=== PATIENT | female | born 1975 | race Caucasian/White ===

== ENCOUNTER 2018-10-10 12:10 | Emergency (ER) | payer OTHER ==
[~2018-10-10] VITALS: Ht 165.1 cm; Wt 74.8 kg
[~2018-10-10 12:10] MED LIST: Augmentin 875-1 EACH PO; Bactrim Ds Tab1 EACH PO; CEFU500 PO; CEPH500 PO; CODACE30 PO; CYCL10 PO; DOCU100 PO; DULO60 PO; EPIN.3I IM; FERR325 PO; HYDACE10B PO; HYDR1TAB94 PO; IBUP600 PO; MEDR150I IM; NAPR500 PO; Naprosyn500 MG PO; Norco 5-325 Ta1 EACH PO; PRED20 PO; PROM25 PO; Pyridium200 MG PO; QUET100 PO; RXOXYACE PO; SENN187 PO; SULTRIDS PO; TAMS.4ER PO; TOBR.3OPO OP; TOBR.3OPSO OP; TRAM50 PO
== END 2018-10-10 12:50 | disposition home or self-care (01) ==
LOC: ER 12:10
DX: L23.7 Allergic contact dermatitis due to plants, except food (principal); Z88.5 Allergy status to narcotic agent; Z87.891 Personal history of nicotine dependence
CPT/HCPCS: 96372; 99283-25; J3301

== ENCOUNTER 2018-10-29 08:41 | Emergency (ER) | payer OTHER ==
[~2018-10-29] VITALS: Ht 165.1 cm; Wt 72.6 kg
[2018-10-29] MEDS ORDERED: PRED10 PO (08:54)
[2018-10-29] MEDS ORDERED: TRIA15CR3 TOP (08:54)
== END 2018-10-29 08:59 | disposition home or self-care (01) ==
LOC: ER 08:41
DX: L23.7 Allergic contact dermatitis due to plants, except food (principal); Z88.5 Allergy status to narcotic agent; Z79.52 Long term (current) use of systemic steroids; G43.909 Migraine, unspecified, not intractable, without status migrainosus; F41.9 Anxiety disorder, unspecified; F43.10 Post-traumatic stress disorder, unspecified; Z87.891 Personal history of nicotine dependence
CPT/HCPCS: 99282

== ENCOUNTER 2021-05-31 12:47 | Emergency (ER) | payer OTHER ==
[~2021-05-31] VITALS: Ht 165.1 cm; Wt 74.8 kg
[~2021-05-31 12:47] MED LIST changes: +PRED10 PO; +TRIA15CR3 TOP
[2021-05-31 14:23] LABS: BASOPHILS ABSOLUTE AUTO 0.07 K/mm3 (0.00-0.23); BASOPHILS PERCENT AUTO 0 % (0-2); EOSINOPHILS ABSOLUTE AUTO 0.12 K/mm3 (0.00-0.68); EOSINOPHILS PERCENT AUTO 1 % (0-6); Hematocrit 42.3 % (33.0-51.0); Hemoglobin 13.8 g/dL (11.5-16.0); IMMATURE GRAN ABSOLUTE AUTO 0.11 K/mm3 (0.00-0.10); IMMATURE GRAN PERCENT AUTO 1 % (0-1); LYMPHOCYTES ABSOLUTE AUTO 1.98 K/mm3 (0.84-5.20); LYMPHOCYTES PERCENT AUTO 11 % (21-46); MONOCYTES ABSOLUTE AUTO 0.82 K/mm3 (0.16-1.47); MONOCYTES PERCENT AUTO 5 % (4-13); Mean Corpuscular HGB Conc 32.6 g/dL (31.5-36.5); Mean Corpuscular Volume 86 fL (80-100); Mean Platelet Volume 10.4 fL (9.1-12.4); NEUTROPHILS ABSOLUTE AUTO 15.25 K/mm3 (1.96-9.15); NEUTROPHILS PERCENT AUTO 83 % (41-73); Platelet Count 288 K/mm3 (150-400); RDW Coefficient Variation 13.7 % (11.7-14.2); RDW Standard Deviation 42.7 fL (35.1-46.3); Red Blood Cell Count 4.92 M/mm3 (3.80-5.20); White Blood Cell Count 18.35 K/mm3 (4.00-11.30)
[2021-05-31 14:36] LABS: Alanine Aminotransfer (ALT/SGP 18 U/L (12-78); Albumin, Blood 3.7 g/dL (3.4-5.0); Alk Phos 82 U/L (50-136); Anion Gap 7 mmol/L (6-16); Aspartate Aminotrans (AST/SGOT 16 U/L (12-37); Bilirubin, Total 0.3 mg/dL (0.1-1.0); Blood Urea Nitrogen 16 mg/dL (8-24); Bun/Creatinine Ratio 19.4 (12.0-20.0); CO2, Blood 23 mmol/L (21-32); Calcium, Blood 9.2 mg/dL (8.5-10.1); Chloride, Blood 112 mmol/L (98-108); Creatinine, Blood 0.82 mg/dL (0.40-1.00); Globulin, Blood 3.8 g/dL (2.2-4.0); Glomerular Filtration Rate >60 (60-); Glucose, Blood 117 mg/dL (70-99); Sodium, Blood 142 mmol/L (136-145); Total Protein, Blood 7.5 g/dL (6.4-8.2)
[2021-05-31 16:16] LABS: Source, Urine Clean Catch
[2021-05-31 16:19] LABS: Appearance, Urine Hazy (Clear); Bilirubin, Urine Neg (Neg); Blood, Urine 5+ (Neg); Color, Urine Amber (P-Yellow); Glucose Qualitative, Urine Neg (Neg); Ketones, Urine 3+ (Neg); Leukocyte Esterase, Urine 1+ (Neg); Nitrite, Urine Neg (Neg); Protein, Urine 2+ (Neg); Specific Gravity, Urine 1.025 (1.003-1.022); Urobilinogen, Urine NORM (Normal)
[2021-05-31 16:28] LABS: Red Blood Cells, Urine 50-100 /hpf (0-2)
[2021-05-31 16:29] LABS: Bacteria Mod /hpf; Squamous Epithelial Cells Rare /hpf (Few)
[2021-05-31 16:31] LABS: Hyaline Casts 0-2 /lpf (0-2); Mucus Light (0-Heavy)
[2021-05-31] MEDS ORDERED: RIZATRIPTAN10 MG SL (18:30)
[2021-05-31 19:54] LABS: Influenza A, PCR NEGATIVE (NEGATIVE); Influenza B, PCR NEGATIVE (NEGATIVE); Resp Syncytial Virus, PCR NEGATIVE (NEGATIVE); SARS-Cov-2 (COVID-19) PCR, MMC NEGATIVE (NEGATIVE)
== END 2021-05-31 20:15 | disposition short-term general hospital (02) ==
LOC: ER 12:47
PROVIDERS: Physician Assistant
DX: N13.6 Pyonephrosis (principal); G43.909 Migraine, unspecified, not intractable, without status migrainosus; Z88.5 Allergy status to narcotic agent; Z79.899 Other long term (current) drug therapy
CPT/HCPCS: 0241U; 36415; 74176; 80053; 81001; 81025; 83605; 85025; 87040; 87086; 96361; 96372; 96374; 96375; 96376; 99285-25; A9270; J0696; J1170; J1200; J1790; J1885; J2405; J2550; J7030

== ENCOUNTER → 2023-11-16 | Outpatient (CLI) | payer OTHER ==
[~2023-11-16] MED LIST changes: +RIZATRIPTAN10 MG SL
[2023-11-16 19:24] LABS: BASOPHILS ABSOLUTE AUTO 0.05 K/mm3 (0.00-0.23); BASOPHILS PERCENT AUTO 1 % (0-2); EOSINOPHILS ABSOLUTE AUTO 0.06 K/mm3 (0.00-0.68); EOSINOPHILS PERCENT AUTO 1 % (0-6); Hematocrit 37.2 % (33.0-51.0); IMMATURE GRAN ABSOLUTE AUTO 0.07 K/mm3 (0.00-0.10); IMMATURE GRAN PERCENT AUTO 1 % (0-1); LYMPHOCYTES ABSOLUTE AUTO 1.61 K/mm3 (0.84-5.20); LYMPHOCYTES PERCENT AUTO 16 % (21-46); MONOCYTES PERCENT AUTO 5 % (4-13); Mean Corpuscular HGB Conc 29.6 g/dL (31.5-36.5); Mean Corpuscular Volume 74 fL (80-100); Mean Platelet Volume 10.6 fL (9.1-12.4); NEUTROPHILS ABSOLUTE AUTO 7.76 K/mm3 (1.96-9.15); NEUTROPHILS PERCENT AUTO 77 % (41-73); Platelet Count 373 K/mm3 (150-400); RDW Coefficient Variation 16.8 % (11.7-14.2); RDW Standard Deviation 44.4 fL (35.1-46.3); Red Blood Cell Count 5.01 M/mm3 (3.80-5.20); White Blood Cell Count 10.05 K/mm3 (4.00-11.30)
[2023-11-16 19:47] LABS: Alanine Aminotransfer (ALT/SGP 19 U/L (12-78); Albumin, Blood 3.8 g/dL (3.4-5.0); Alk Phos 88 U/L (50-136); Anion Gap 10 mmol/L (3-11); Aspartate Aminotrans (AST/SGOT 11 U/L (12-37); Bilirubin, Total 0.4 mg/dL (0.1-1.0); Blood Urea Nitrogen 12 mg/dL (8-24); Bun/Creatinine Ratio 16.8 (12.0-20.0); CHOL/HDL RATIO 2.5; CO2, Blood 22 mmol/L (21-32); Calcium, Blood 9.1 mg/dL (8.5-10.1); Chloride, Blood 111 mmol/L (98-108); Cholesterol 165 mg/dL (50-200); Creatinine, Blood 0.71 mg/dL (0.40-1.00); Globulin, Blood 3.8 g/dL (2.2-4.0); Glomerular Filtration Rate 104 (60-); Glucose, Blood 102 mg/dL (70-99); HDL Cholesterol 66 mg/dL (>39); LDL/HDL RATIO 1.3; Low Density Lipoprotein Chol 85 mg/dL (0-110); Potassium, Blood 3.7 mmol/L (3.5-5.5); Sodium, Blood 139 mmol/L (136-145); Total Protein, Blood 7.6 g/dL (6.4-8.2); Triglycerides 70 mg/dL (30-160); Very Low Density Lipoprot Chol 14 mg/dL (6-32)
[2023-11-20 05:37] LABS: ANTI-MULLERIAN HORMONE 0.825 ng/mL (<=0.064)
[2023-11-20 19:14] LABS: ESTRADIOL BY MASS SPEC 83.1 pg/mL; ESTRONE BY MASS SPEC 51.9 pg/mL
== END ==
LOC: LAB SHORT 18:40 → LAB 18:40
PROVIDERS: Nurse Practitioner Family
DX: I10 Essential (primary) hypertension (principal); E55.9 Vitamin D deficiency, unspecified; N92.4 Excessive bleeding in the premenopausal period; N92.6 Irregular menstruation, unspecified
CPT/HCPCS: 80053; 80061; 82306; 82671; 83001; 83520; 84443; 85025